=== PATIENT | male | born 1940 | race Caucasian/White ===

== ENCOUNTER 2017-04-15 11:54 | Inpatient (IN) | payer MEDICARE ==
[~2017-04-15] VITALS: Ht 170.2 cm; Wt 91.0 kg
[2017-04-15 12:42] LABS: HEMOGLOBIN 13.7 g/dL (13.7-18.0); WHITE BLOOD COUNT 12.7 x10^3/uL (3.4-10)
[2017-04-15 12:56] LABS: BLOOD UREA NITROGEN 34 mg/dL (7-18)
[2017-04-15 13:01] LABS: ASPARTATE AMINO TRANSFERASE 51 U/L (15-37)
[2017-04-15 13:03] LABS: IS PT STATUS REG ER OR PRE ER? YES
[2017-04-15] MEDS ORDERED: SODIUM CHLORIDE 0.9% 1,000ML IVBOLUS ONE (13:30)
[2017-04-15] MEDS ORDERED: SODIUM CHLORIDE FLUSH 10ML SYR IVF ONE (13:30)
[2017-04-15] MEDS ORDERED: CEFTRIAXONE PMX 1GM/50ML 50 ML IV ONE (14:30)
[2017-04-15] MEDS ORDERED: RASA1TAB2 PO (14:58)
[2017-04-15] MEDS ORDERED: CARB1TAB25 PO (14:58)
[2017-04-15] MEDS ORDERED: CEFTRIAXONE PMX 1GM/50ML 50 ML ONE (15:30)
[2017-04-15] MEDS ORDERED: ENALAPRILAT 1.25 MG/ML, 2ML IVPush PRN (15:30)
[2017-04-15] MEDS ORDERED: ACETAMINOPHEN 325 MG TABLET PO PRN (15:30)
[2017-04-15] MEDS ORDERED: LABETALOL 5MG/ML, 20ML IVPush PRN (15:30)
[2017-04-15] MEDS ORDERED: DOCUSATE 100 MG CAPSULE PO PRN (15:30)
[2017-04-15] MEDS ORDERED: ONDANSETRON 2MG/ML, 2ML IVPush PRN (15:30)
[2017-04-15] MEDS ORDERED: ONDANSETRON ODT 4 MG PO PRN (15:30)
[2017-04-15] MEDS: SODIUM CHLORIDE 0.9% 1,000 ML IV SCH (17:17)
[2017-04-15] MEDS: CARBIDOPA/LEVODOPA 25 MG/250 MG TABLET PO SCH ×3 (18:32→22:12)
[2017-04-15 19:11] VITALS: BP 105/63
[2017-04-16 00:22] VITALS: BP 96/60
[2017-04-16] MEDS: CARBIDOPA/LEVODOPA 25 MG/250 MG TABLET PO SCH ×12 (00:24→22:13)
[2017-04-16] MEDS: SODIUM CHLORIDE 0.9% 1,000 ML IV SCH ×3 (03:07→22:13)
[2017-04-16 07:44] VITALS: BP 117/78
[2017-04-16] MEDS: SENNA/DOCUSATE TABLET PO SCH (09:00)
[2017-04-16] MEDS: RASAGILINE MESYLATE PO SCH (09:15)
[2017-04-16 09:29] LABS: HEMATOCRIT 39.3 % (39.2-51.8); HEMOGLOBIN 13.1 g/dL (13.7-18.0); WHITE BLOOD COUNT 9.2 x10^3/uL (3.4-10)
[2017-04-16 09:41] LABS: ASPARTATE AMINO TRANSFERASE 46 U/L (15-37); BLOOD UREA NITROGEN 22 mg/dL (7-18)
[2017-04-16] MEDS: CEFTRIAXONE PMX 2GM/50ML 50 ML IV SCH (11:56)
[2017-04-16] MEDS: HEPARIN 5,000 UNITS/ML, 1ML SQ SCH ×2 (12:00→20:00)
[2017-04-16 13:55] VITALS: BP 90/58
[2017-04-16 18:54] VITALS: BP 92/61
[2017-04-17] MEDS: CARBIDOPA/LEVODOPA 25 MG/250 MG TABLET PO SCH ×12 (00:15→22:17)
[2017-04-17 00:29] VITALS: BP 103/64
[2017-04-17] MEDS: HEPARIN 5,000 UNITS/ML, 1ML SQ SCH ×3 (03:41→20:00)
[2017-04-17 05:16] LABS: BLOOD UREA NITROGEN 19 mg/dL (7-18)
[2017-04-17 05:17] LABS: HEMATOCRIT 34.5 % (39.2-51.8); HEMOGLOBIN 11.6 g/dL (13.7-18.0); WHITE BLOOD COUNT 8.3 x10^3/uL (3.4-10)
[2017-04-17 05:19] LABS: ASPARTATE AMINO TRANSFERASE 32 U/L (15-37)
[2017-04-17 08:30] VITALS: BP 121/74
[2017-04-17] MEDS: SENNA/DOCUSATE TABLET PO SCH (09:00)
[2017-04-17] MEDS: RASAGILINE MESYLATE PO SCH (09:00)
[2017-04-17] MEDS: SODIUM CHLORIDE 0.9% 1,000 ML IV SCH (10:49)
[2017-04-17] MEDS: CEFTRIAXONE PMX 2GM/50ML 50 ML IV SCH (12:00)
[2017-04-17] MEDS: CEPHALEXIN 500 MG CAPSULE PO SCH ×3 (12:38→20:22)
[2017-04-17 15:38] VITALS: BP 134/75
[2017-04-17 18:52] VITALS: BP 126/68
[2017-04-17] MEDS ORDERED: ERGOCALCIFEROL 50,000 UNIT CAPSULE PO SCH (20:00)
[2017-04-17] MEDS: ERGOCALCIFEROL 50,000 UNIT CAPSULE PO SCH (22:17)
[2017-04-18] MEDS: CARBIDOPA/LEVODOPA 25 MG/250 MG TABLET PO SCH ×12 (00:16→22:57)
[2017-04-18] MEDS: HEPARIN 5,000 UNITS/ML, 1ML SQ SCH ×3 (04:00→20:00)
[2017-04-18 04:05] VITALS: BP 149/83
[2017-04-18] MEDS: CEPHALEXIN 500 MG CAPSULE PO SCH ×4 (06:28→20:55)
[2017-04-18 06:47] VITALS: BP 119/75
[2017-04-18] MEDS: SENNA/DOCUSATE TABLET PO SCH (08:24)
[2017-04-18] MEDS: RASAGILINE MESYLATE PO SCH (08:24)
[2017-04-18 13:10] VITALS: BP 162/93
[2017-04-18 19:46] VITALS: BP 108/69
[2017-04-18] MEDS ORDERED: LABETALOL 5MG/ML, 20ML IVPush PRN (20:30)
[2017-04-18] MEDS ORDERED: ONDANSETRON ODT 4 MG PO PRN (20:30)
[2017-04-18] MEDS ORDERED: ENALAPRILAT 1.25 MG/ML, 2ML IVPush PRN (20:30)
[2017-04-18] MEDS ORDERED: ACETAMINOPHEN 325 MG TABLET PO PRN (20:30)
[2017-04-18] MEDS ORDERED: DOCUSATE 100 MG CAPSULE PO PRN (20:30)
[2017-04-18] MEDS ORDERED: ONDANSETRON 2MG/ML, 2ML IVPush PRN (20:30)
[2017-04-19] MEDS: CARBIDOPA/LEVODOPA 25 MG/250 MG TABLET PO SCH ×12 (00:48→22:55)
[2017-04-19] MEDS: HEPARIN 5,000 UNITS/ML, 1ML SQ SCH ×3 (04:00→20:00)
[2017-04-19] MEDS: CEPHALEXIN 500 MG CAPSULE PO SCH ×4 (06:17→21:11)
[2017-04-19 07:05] VITALS: BP 169/71
[2017-04-19] MEDS: RASAGILINE MESYLATE PO SCH (09:31)
[2017-04-19] MEDS: SENNA/DOCUSATE TABLET PO SCH (09:31)
[2017-04-19 12:43] VITALS: BP 128/84
[2017-04-19 20:06] VITALS: BP 114/71
[2017-04-20] MEDS: CARBIDOPA/LEVODOPA 25 MG/250 MG TABLET PO SCH ×12 (01:20→21:56)
[2017-04-20 01:34] VITALS: BP 107/70
[2017-04-20] MEDS: HEPARIN 5,000 UNITS/ML, 1ML SQ SCH ×3 (03:55→20:00)
[2017-04-20] MEDS: CEPHALEXIN 500 MG CAPSULE PO SCH ×4 (05:24→21:56)
[2017-04-20] MEDS: RASAGILINE MESYLATE PO SCH (07:25)
[2017-04-20] MEDS: SENNA/DOCUSATE TABLET PO SCH (07:25)
[2017-04-20 08:11] VITALS: BP 120/69
[2017-04-20 19:29] VITALS: BP 99/62
[2017-04-21] MEDS: CARBIDOPA/LEVODOPA 25 MG/250 MG TABLET PO SCH ×12 (02:07→21:55)
[2017-04-21 02:39] VITALS: BP 121/67
[2017-04-21] MEDS: HEPARIN 5,000 UNITS/ML, 1ML SQ SCH ×3 (04:00→20:00)
[2017-04-21] MEDS: CEPHALEXIN 500 MG CAPSULE PO SCH ×4 (05:44→20:03)
[2017-04-21] MEDS: SENNA/DOCUSATE TABLET PO SCH (08:04)
[2017-04-21] MEDS: RASAGILINE MESYLATE PO SCH (08:04)
[2017-04-21 13:29] VITALS: BP 132/80
[2017-04-21 16:15] LABS: PATH.CAST-FLAG NOT PRESENT; SPERM-FLAG NOT PRESENT; SRC-FLAG NOT PRESENT; XTAL-FLAG NOT PRESENT; YLC-FLAG NOT PRESENT
[2017-04-22] MEDS: CARBIDOPA/LEVODOPA 25 MG/250 MG TABLET PO SCH ×12 (00:19→22:35)
[2017-04-22] MEDS: HEPARIN 5,000 UNITS/ML, 1ML SQ SCH ×3 (04:00→20:00)
[2017-04-22] MEDS: CEPHALEXIN 500 MG CAPSULE PO SCH ×2 (05:55→11:00)
[2017-04-22 08:00] VITALS: BP 130/80
[2017-04-22] MEDS: RASAGILINE MESYLATE PO SCH (08:45)
[2017-04-22] MEDS: SENNA/DOCUSATE TABLET PO SCH (08:46)
[2017-04-22 14:13] VITALS: BP 110/65
[2017-04-22 19:05] VITALS: BP 113/64
[2017-04-23] MEDS: CARBIDOPA/LEVODOPA 25 MG/250 MG TABLET PO SCH ×11 (00:40→22:14)
[2017-04-23 02:51] VITALS: BP 110/62
[2017-04-23] MEDS: HEPARIN 5,000 UNITS/ML, 1ML SQ SCH ×3 (04:00→20:37)
[2017-04-23 05:35] LABS: HEMATOCRIT 38.2 % (39.2-51.8); HEMOGLOBIN 12.9 g/dL (13.7-18.0); WHITE BLOOD COUNT 8.7 x10^3/uL (3.4-10)
[2017-04-23 05:47] LABS: BLOOD UREA NITROGEN 23 mg/dL (7-18)
[2017-04-23 05:51] LABS: ASPARTATE AMINO TRANSFERASE 18 U/L (15-37)
[2017-04-23] MEDS: RASAGILINE MESYLATE PO SCH (08:39)
[2017-04-23] MEDS: SENNA/DOCUSATE TABLET PO SCH (08:39)
[2017-04-23 13:45] VITALS: BP 109/59
[2017-04-23 19:39] VITALS: BP 133/79
[2017-04-24] MEDS: CARBIDOPA/LEVODOPA 25 MG/250 MG TABLET PO SCH ×11 (00:22→23:08)
[2017-04-24] MEDS: HEPARIN 5,000 UNITS/ML, 1ML SQ SCH ×3 (03:53→21:19)
[2017-04-24] MEDS: RASAGILINE MESYLATE PO SCH (08:33)
[2017-04-24] MEDS: SENNA/DOCUSATE TABLET PO SCH (08:33)
[2017-04-24 14:00] VITALS: BP 125/85
[2017-04-24 17:03] VITALS: BP 122/74
[2017-04-24 18:45] VITALS: BP 102/64
[2017-04-24] MEDS: ERGOCALCIFEROL 50,000 UNIT CAPSULE PO SCH (21:17)
[2017-04-25] MEDS: CARBIDOPA/LEVODOPA 25 MG/250 MG TABLET PO SCH ×13 (00:56→23:38)
[2017-04-25] MEDS: HEPARIN 5,000 UNITS/ML, 1ML SQ SCH ×3 (03:47→20:00)
[2017-04-25 07:06] VITALS: BP 114/72
[2017-04-25] MEDS: SENNA/DOCUSATE TABLET PO SCH (09:00)
[2017-04-25] MEDS: RASAGILINE MESYLATE PO SCH (09:00)
[2017-04-25 13:53] VITALS: BP 99/62
[2017-04-25 18:53] VITALS: BP 119/65
[2017-04-25] MEDS ORDERED: ACETAMINOPHEN 325 MG TABLET PO PRN (20:30)
[2017-04-25] MEDS ORDERED: LABETALOL 5MG/ML, 20ML IVPush PRN (20:30)
[2017-04-25] MEDS ORDERED: DOCUSATE 100 MG CAPSULE PO PRN (20:30)
[2017-04-25] MEDS ORDERED: ONDANSETRON 2MG/ML, 2ML IVPush PRN (20:30)
[2017-04-25] MEDS ORDERED: ENALAPRILAT 1.25 MG/ML, 2ML IVPush PRN (20:30)
[2017-04-26] MEDS: CARBIDOPA/LEVODOPA 25 MG/250 MG TABLET PO SCH ×11 (01:33→22:06)
[2017-04-26] MEDS: HEPARIN 5,000 UNITS/ML, 1ML SQ SCH ×3 (03:44→20:00)
[2017-04-26 08:00] VITALS: BP 137/67
[2017-04-26] MEDS: RASAGILINE MESYLATE PO SCH (09:00)
[2017-04-26] MEDS: SENNA/DOCUSATE TABLET PO SCH (09:00)
[2017-04-26 13:00] VITALS: BP 118/69
[2017-04-26 20:10] VITALS: BP 115/67
[2017-04-27] MEDS: CARBIDOPA/LEVODOPA 25 MG/250 MG TABLET PO SCH ×12 (00:06→23:36)
[2017-04-27 01:10] VITALS: BP 104/62
[2017-04-27] MEDS: HEPARIN 5,000 UNITS/ML, 1ML SQ SCH ×3 (04:00→20:00)
[2017-04-27 07:06] VITALS: BP 96/55
[2017-04-27] MEDS: RASAGILINE MESYLATE PO SCH (09:00)
[2017-04-27] MEDS: SENNA/DOCUSATE TABLET PO SCH (09:00)
[2017-04-27 14:46] VITALS: BP 118/79
[2017-04-28] MEDS: CARBIDOPA/LEVODOPA 25 MG/250 MG TABLET PO SCH ×12 (01:37→23:26)
[2017-04-28 02:17] VITALS: BP 97/45
[2017-04-28] MEDS: HEPARIN 5,000 UNITS/ML, 1ML SQ SCH ×3 (04:00→19:42)
[2017-04-28 05:27] LABS: HEMATOCRIT 37.2 % (39.2-51.8); HEMOGLOBIN 12.2 g/dL (13.7-18.0)
[2017-04-28 05:46] LABS: ASPARTATE AMINO TRANSFERASE 15 U/L (15-37); BLOOD UREA NITROGEN 19 mg/dL (7-18)
[2017-04-28] MEDS: RASAGILINE MESYLATE PO SCH (07:36)
[2017-04-28] MEDS: SENNA/DOCUSATE TABLET PO SCH (07:36)
[2017-04-28 08:01] VITALS: BP 125/63
[2017-04-28 13:40] VITALS: BP 105/62
[2017-04-28] MEDS ORDERED: CALCIUM CARBONATE 500 MG TAB.CHEW PO PRN (16:30)
[2017-04-28 19:14] VITALS: BP 106/62
[2017-04-29] MEDS: CARBIDOPA/LEVODOPA 25 MG/250 MG TABLET PO SCH ×12 (01:42→23:01)
[2017-04-29 02:45] VITALS: BP 103/62
[2017-04-29] MEDS: HEPARIN 5,000 UNITS/ML, 1ML SQ SCH ×3 (03:22→19:44)
[2017-04-29 04:43] LABS: HEMATOCRIT 36.9 % (39.2-51.8); HEMOGLOBIN 12.3 g/dL (13.7-18.0)
[2017-04-29 04:52] LABS: BLOOD UREA NITROGEN 18 mg/dL (7-18)
[2017-04-29] MEDS: SENNA/DOCUSATE TABLET PO SCH (07:28)
[2017-04-29] MEDS: RASAGILINE MESYLATE PO SCH (07:29)
[2017-04-29 08:35] VITALS: BP 119/74
[2017-04-29 13:03] VITALS: BP 123/78
[2017-04-29 18:27] VITALS: BP 113/69
[2017-04-30] MEDS: CARBIDOPA/LEVODOPA 25 MG/250 MG TABLET PO SCH ×12 (01:07→23:30)
[2017-04-30 03:35] VITALS: BP 136/80
[2017-04-30] MEDS: HEPARIN 5,000 UNITS/ML, 1ML SQ SCH ×3 (04:00→19:36)
[2017-04-30 06:44] VITALS: BP 104/66
[2017-04-30] MEDS: RASAGILINE MESYLATE PO SCH (07:45)
[2017-04-30] MEDS: SENNA/DOCUSATE TABLET PO SCH (07:45)
[2017-04-30 13:30] VITALS: BP 106/68
[2017-04-30 19:44] VITALS: BP 108/63
[2017-05-01] MEDS: CARBIDOPA/LEVODOPA 25 MG/250 MG TABLET PO SCH ×11 (01:30→22:46)
[2017-05-01 01:37] VITALS: BP 99/58
[2017-05-01] MEDS: HEPARIN 5,000 UNITS/ML, 1ML SQ SCH ×3 (04:00→20:00)
[2017-05-01 06:39] VITALS: BP 104/63
[2017-05-01] MEDS: RASAGILINE MESYLATE PO SCH (08:27)
[2017-05-01] MEDS: SENNA/DOCUSATE TABLET PO SCH (08:27)
[2017-05-01 12:56] VITALS: BP 103/66
[2017-05-01 19:34] VITALS: BP 97/68
[2017-05-01] MEDS: ERGOCALCIFEROL 50,000 UNIT CAPSULE PO SCH (20:54)
[2017-05-02] MEDS: CARBIDOPA/LEVODOPA 25 MG/250 MG TABLET PO SCH ×12 (00:50→22:45)
[2017-05-02 02:01] VITALS: BP 116/72
[2017-05-02] MEDS: HEPARIN 5,000 UNITS/ML, 1ML SQ SCH ×3 (04:00→20:00)
[2017-05-02 06:55] VITALS: BP 97/62
[2017-05-02] MEDS: RASAGILINE MESYLATE PO SCH (08:48)
[2017-05-02] MEDS: SENNA/DOCUSATE TABLET PO SCH (08:56)
[2017-05-02 13:23] VITALS: BP 112/67
[2017-05-02 19:56] VITALS: BP 113/68
[2017-05-03] MEDS: CARBIDOPA/LEVODOPA 25 MG/250 MG TABLET PO SCH ×6 (00:27→10:30)
[2017-05-03 01:39] VITALS: BP 95/58
[2017-05-03] MEDS: HEPARIN 5,000 UNITS/ML, 1ML SQ SCH ×3 (04:00→19:56)
[2017-05-03 06:41] VITALS: BP 105/62
[2017-05-03] MEDS: SENNA/DOCUSATE TABLET PO SCH (08:51)
[2017-05-03] MEDS: RASAGILINE MESYLATE PO SCH (08:51)
[2017-05-03] MEDS: CARBIDOPA/LEVODOPA 25 MG/100 MG TABLET PO SCH ×14 (11:02→23:33)
[2017-05-03 12:21] VITALS: BP 122/82
[2017-05-03 18:52] VITALS: BP 115/77
[2017-05-04 01:17] VITALS: BP 133/85
[2017-05-04] MEDS: CARBIDOPA/LEVODOPA 25 MG/100 MG TABLET PO SCH ×10 (01:26→09:43)
[2017-05-04] MEDS: HEPARIN 5,000 UNITS/ML, 1ML SQ SCH ×3 (04:00→20:00)
[2017-05-04 05:08] LABS: HEMATOCRIT 36.5 % (39.2-51.8); HEMOGLOBIN 12.3 g/dL (13.7-18.0); WHITE BLOOD COUNT 6.2 x10^3/uL (3.4-10)
[2017-05-04 05:19] LABS: BLOOD UREA NITROGEN 30 mg/dL (7-18)
[2017-05-04 07:54] VITALS: BP 123/80
[2017-05-04] MEDS: RASAGILINE MESYLATE PO SCH (09:00)
[2017-05-04] MEDS: SENNA/DOCUSATE TABLET PO SCH (09:00)
[2017-05-04] MEDS: CARBIDOPA/LEVODOPA 25 MG/250 MG TABLET PO SCH ×6 (12:03→22:47)
[2017-05-04 13:12] VITALS: BP 114/72
[2017-05-04 19:31] VITALS: BP 98/65
[2017-05-05] MEDS: CARBIDOPA/LEVODOPA 25 MG/250 MG TABLET PO SCH ×11 (00:38→23:36)
[2017-05-05 00:45] VITALS: BP 90/59
[2017-05-05] MEDS: HEPARIN 5,000 UNITS/ML, 1ML SQ SCH ×3 (03:53→19:38)
[2017-05-05] MEDS: RASAGILINE MESYLATE PO SCH (07:51)
[2017-05-05] MEDS: SENNA/DOCUSATE TABLET PO SCH (08:03)
[2017-05-05 13:21] VITALS: BP 110/64
[2017-05-05 18:55] VITALS: BP 125/82
[2017-05-06 01:06] VITALS: BP 131/88
[2017-05-06] MEDS: CARBIDOPA/LEVODOPA 25 MG/250 MG TABLET PO SCH ×11 (01:14→23:00)
[2017-05-06] MEDS: HEPARIN 5,000 UNITS/ML, 1ML SQ SCH ×3 (04:00→20:00)
[2017-05-06 07:17] VITALS: BP 111/72
[2017-05-06] MEDS: RASAGILINE MESYLATE PO SCH (07:25)
[2017-05-06] MEDS: SENNA/DOCUSATE TABLET PO SCH (07:28)
[2017-05-06 13:59] VITALS: BP 125/82
[2017-05-06] MEDS: ROPINIROLE 0.25MG TABLET PO SCH ×2 (16:37→20:53)
[2017-05-06 19:40] VITALS: BP 109/65
[2017-05-07 00:04] VITALS: BP 130/83
[2017-05-07] MEDS: CARBIDOPA/LEVODOPA 25 MG/250 MG TABLET PO SCH ×5 (00:17→07:54)
[2017-05-07] MEDS: HEPARIN 5,000 UNITS/ML, 1ML SQ SCH ×3 (04:00→19:56)
[2017-05-07 06:45] VITALS: BP 134/80
[2017-05-07] MEDS: RASAGILINE MESYLATE PO SCH (06:59)
[2017-05-07] MEDS: SENNA/DOCUSATE TABLET PO SCH (07:54)
[2017-05-07] MEDS: ROPINIROLE 0.25MG TABLET PO SCH ×3 (07:54→21:15)
[2017-05-07] MEDS: CARBIDOPA/LEVODOPA 25 MG/250 MG TABLET PO PRN ×3 (11:32→21:15)
[2017-05-07 14:14] VITALS: BP 112/73
[2017-05-07] MEDS ORDERED: ALBUTEROL SULFATE 2.5 MG/3 ML ONE (15:06)
[2017-05-07] MEDS ORDERED: ALBUTEROL SULFATE 2.5 MG/3 ML NPPB ONE (15:25)
[2017-05-07 21:09] VITALS: BP 121/71
[2017-05-08] MEDS: HEPARIN 5,000 UNITS/ML, 1ML SQ SCH ×3 (01:23→20:00)
[2017-05-08 01:37] VITALS: BP 129/71
[2017-05-08] MEDS: CARBIDOPA/LEVODOPA 25 MG/250 MG TABLET PO PRN ×7 (05:06→21:34)
[2017-05-08 07:33] VITALS: BP 103/68
[2017-05-08] MEDS: RASAGILINE MESYLATE PO SCH (08:56)
[2017-05-08] MEDS: SENNA/DOCUSATE TABLET PO SCH (09:00)
[2017-05-08] MEDS: ROPINIROLE 0.25MG TABLET PO SCH ×3 (09:25→21:03)
[2017-05-08 13:13] LABS: PPD INJECT PLACED
[2017-05-08 14:21] VITALS: BP 111/74
[2017-05-08 19:19] VITALS: BP 121/78
[2017-05-08] MEDS: ERGOCALCIFEROL 50,000 UNIT CAPSULE PO SCH (20:09)
[2017-05-09 02:01] VITALS: BP 111/72
[2017-05-09] MEDS: CARBIDOPA/LEVODOPA 25 MG/250 MG TABLET PO PRN ×8 (02:38→22:58)
[2017-05-09] MEDS: HEPARIN 5,000 UNITS/ML, 1ML SQ SCH ×3 (04:00→20:00)
[2017-05-09 08:10] VITALS: BP 136/74
[2017-05-09] MEDS: RASAGILINE MESYLATE PO SCH (08:38)
[2017-05-09] MEDS: ROPINIROLE 0.25MG TABLET PO SCH ×3 (08:42→22:58)
[2017-05-09] MEDS: SENNA/DOCUSATE TABLET PO SCH (08:48)
[2017-05-09 13:36] VITALS: BP 108/60
[2017-05-09 19:06] VITALS: BP 131/86
[2017-05-10] MEDS: CARBIDOPA/LEVODOPA 25 MG/250 MG TABLET PO PRN ×9 (02:34→23:24)
[2017-05-10 03:17] VITALS: BP 115/66
[2017-05-10] MEDS: HEPARIN 5,000 UNITS/ML, 1ML SQ SCH ×3 (03:48→20:00)
[2017-05-10 06:09] LABS: HEMATOCRIT 36.9 % (39.2-51.8); HEMOGLOBIN 12.6 g/dL (13.7-18.0); WHITE BLOOD COUNT 6.5 x10^3/uL (3.4-10)
[2017-05-10 06:15] LABS: BLOOD UREA NITROGEN 26 mg/dL (7-18)
[2017-05-10 07:24] VITALS: BP 98/62
[2017-05-10] MEDS: RASAGILINE MESYLATE PO SCH (08:34)
[2017-05-10] MEDS: SENNA/DOCUSATE TABLET PO SCH (09:00)
[2017-05-10] MEDS: ROPINIROLE 0.25MG TABLET PO SCH ×3 (09:21→20:49)
[2017-05-10 15:45] VITALS: BP 102/67
[2017-05-10 17:37] LABS: TUBERCULIN 48 HOUR READ 0 mm (< 5)
[2017-05-10 18:37] VITALS: BP 99/62
[2017-05-10] MEDS ORDERED: TEMAZEPAM 15 MG CAPSULE PO PRN (23:00)
[2017-05-11] MEDS: CARBIDOPA/LEVODOPA 25 MG/250 MG TABLET PO PRN ×9 (01:28→22:51)
[2017-05-11 01:34] VITALS: BP 120/67
[2017-05-11] MEDS: HEPARIN 5,000 UNITS/ML, 1ML SQ SCH ×3 (03:52→19:40)
[2017-05-11 07:00] VITALS: BP 121/72
[2017-05-11] MEDS: SENNA/DOCUSATE TABLET PO SCH (07:29)
[2017-05-11] MEDS: RASAGILINE MESYLATE PO SCH (07:29)
[2017-05-11] MEDS: ROPINIROLE 0.25MG TABLET PO SCH ×3 (07:59→20:57)
[2017-05-11 12:26] VITALS: BP 133/87
[2017-05-11 18:38] VITALS: BP 131/84
[2017-05-11 20:57] LABS: TUBERCULIN 72 HOUR READ 0 mm (< 5)
[2017-05-12] MEDS: CARBIDOPA/LEVODOPA 25 MG/250 MG TABLET PO PRN ×9 (01:17→23:33)
[2017-05-12 02:02] VITALS: BP 91/47
[2017-05-12] MEDS: HEPARIN 5,000 UNITS/ML, 1ML SQ SCH ×3 (03:31→19:59)
[2017-05-12 07:18] VITALS: BP 123/77
[2017-05-12] MEDS: ROPINIROLE 0.25MG TABLET PO SCH ×3 (08:08→20:41)
[2017-05-12] MEDS: SENNA/DOCUSATE TABLET PO SCH ×2 (08:08→16:24)
[2017-05-12] MEDS: RASAGILINE MESYLATE PO SCH (08:08)
[2017-05-12 09:43] VITALS: BP 102/68
[2017-05-12 14:31] VITALS: BP 101/59
[2017-05-12 18:53] VITALS: BP 100/63
[2017-05-13] MEDS: CARBIDOPA/LEVODOPA 25 MG/250 MG TABLET PO PRN ×8 (01:32→20:56)
[2017-05-13 02:32] VITALS: BP 122/66
[2017-05-13] MEDS: HEPARIN 5,000 UNITS/ML, 1ML SQ SCH ×3 (03:43→20:57)
[2017-05-13 07:07] VITALS: BP 99/64
[2017-05-13] MEDS: SENNA/DOCUSATE TABLET PO SCH (09:00)
[2017-05-13] MEDS: RASAGILINE MESYLATE PO SCH (09:00)
[2017-05-13] MEDS: ROPINIROLE 0.25MG TABLET PO SCH ×3 (09:14→20:56)
[2017-05-13 14:00] VITALS: BP 108/76
[2017-05-13 18:38] VITALS: BP 109/71
[2017-05-14 03:39] VITALS: BP 136/87
[2017-05-14] MEDS: CARBIDOPA/LEVODOPA 25 MG/250 MG TABLET PO PRN ×7 (03:53→21:23)
[2017-05-14] MEDS: HEPARIN 5,000 UNITS/ML, 1ML SQ SCH ×3 (04:00→19:32)
[2017-05-14 07:14] VITALS: BP 95/58
[2017-05-14] MEDS: ROPINIROLE 0.25MG TABLET PO SCH ×3 (08:25→20:03)
[2017-05-14] MEDS: SENNA/DOCUSATE TABLET PO SCH (08:26)
[2017-05-14] MEDS: RASAGILINE MESYLATE PO SCH (08:26)
[2017-05-14 13:41] VITALS: BP 91/54
[2017-05-14 18:31] VITALS: BP 127/80
[2017-05-15] MEDS: HEPARIN 5,000 UNITS/ML, 1ML SQ SCH ×3 (00:53→20:00)
[2017-05-15] MEDS: CARBIDOPA/LEVODOPA 25 MG/250 MG TABLET PO PRN ×8 (01:42→22:51)
[2017-05-15 01:46] VITALS: BP 128/82
[2017-05-15 08:17] VITALS: BP 120/78
[2017-05-15] MEDS: ROPINIROLE 0.25MG TABLET PO SCH ×3 (08:29→19:46)
[2017-05-15] MEDS: RASAGILINE MESYLATE PO SCH (09:00)
[2017-05-15] MEDS: SENNA/DOCUSATE TABLET PO SCH (09:00)
[2017-05-15 12:55] VITALS: BP 107/71
[2017-05-15 18:53] LABS: IS PT STATUS REG ER OR PRE ER? NO
[2017-05-15 19:06] VITALS: BP 107/68
[2017-05-15] MEDS: ERGOCALCIFEROL 50,000 UNIT CAPSULE PO SCH (19:46)
[2017-05-16 01:09] VITALS: BP 99/64
[2017-05-16] MEDS: CARBIDOPA/LEVODOPA 25 MG/250 MG TABLET PO PRN ×7 (02:12→21:59)
[2017-05-16] MEDS: HEPARIN 5,000 UNITS/ML, 1ML SQ SCH ×3 (04:00→19:25)
[2017-05-16 04:18] LABS: IS PT STATUS REG ER OR PRE ER? NO
[2017-05-16 07:17] VITALS: BP 123/74
[2017-05-16] MEDS: ROPINIROLE 0.25MG TABLET PO SCH ×3 (08:28→21:59)
[2017-05-16] MEDS: SENNA/DOCUSATE TABLET PO SCH (08:28)
[2017-05-16] MEDS: RASAGILINE MESYLATE PO SCH (08:28)
[2017-05-16 14:00] VITALS: BP 121/72
[2017-05-16 19:05] VITALS: BP 114/69
[2017-05-17] MEDS: CARBIDOPA/LEVODOPA 25 MG/250 MG TABLET PO PRN ×9 (01:28→23:05)
[2017-05-17 08:00] VITALS: BP 110/65
[2017-05-17] MEDS: RASAGILINE MESYLATE PO SCH (08:28)
[2017-05-17] MEDS: ROPINIROLE 0.25MG TABLET PO SCH ×3 (08:33→20:11)
[2017-05-17] MEDS: SENNA/DOCUSATE TABLET PO SCH (08:34)
[2017-05-17] MEDS: HEPARIN 5,000 UNITS/ML, 1ML SQ SCH ×3 (11:42→20:00)
[2017-05-17 14:00] VITALS: BP 117/72
[2017-05-17 21:16] VITALS: BP 125/72
[2017-05-18] MEDS: CARBIDOPA/LEVODOPA 25 MG/250 MG TABLET PO PRN ×9 (01:29→22:47)
[2017-05-18] MEDS: HEPARIN 5,000 UNITS/ML, 1ML SQ SCH ×3 (03:30→19:27)
[2017-05-18 06:55] VITALS: BP 122/76
[2017-05-18] MEDS: SENNA/DOCUSATE TABLET PO SCH (08:06)
[2017-05-18] MEDS: RASAGILINE MESYLATE PO SCH (08:06)
[2017-05-18] MEDS: ROPINIROLE 0.25MG TABLET PO SCH ×3 (08:06→19:27)
[2017-05-18 14:07] VITALS: BP 125/70
[2017-05-19] MEDS: HEPARIN 5,000 UNITS/ML, 1ML SQ SCH ×3 (00:28→20:00)
[2017-05-19] MEDS: CARBIDOPA/LEVODOPA 25 MG/250 MG TABLET PO PRN ×6 (02:27→20:34)
[2017-05-19 04:58] LABS: HEMATOCRIT 36.1 % (39.2-51.8); HEMOGLOBIN 12.1 g/dL (13.7-18.0); WHITE BLOOD COUNT 6.6 x10^3/uL (3.4-10)
[2017-05-19 05:18] VITALS: BP 115/70
[2017-05-19 05:21] LABS: ASPARTATE AMINO TRANSFERASE 13 U/L (15-37); BLOOD UREA NITROGEN 22 mg/dL (7-18)
[2017-05-19 08:09] VITALS: BP 118/78
[2017-05-19] MEDS: ROPINIROLE 0.25MG TABLET PO SCH ×3 (12:03→20:34)
[2017-05-19] MEDS: SENNA/DOCUSATE TABLET PO SCH (12:03)
[2017-05-19] MEDS: RASAGILINE MESYLATE PO SCH (12:03)
[2017-05-19 14:06] VITALS: BP 123/81
[2017-05-19 18:30] VITALS: BP 94/61
[2017-05-20] MEDS: CARBIDOPA/LEVODOPA 25 MG/250 MG TABLET PO PRN ×7 (01:19→23:42)
[2017-05-20 01:35] VITALS: BP 105/69
[2017-05-20] MEDS: HEPARIN 5,000 UNITS/ML, 1ML SQ SCH ×3 (04:00→20:00)
[2017-05-20 07:08] VITALS: BP 119/76
[2017-05-20] MEDS: ROPINIROLE 0.25MG TABLET PO SCH ×3 (07:50→20:28)
[2017-05-20] MEDS: RASAGILINE MESYLATE PO SCH (08:15)
[2017-05-20] MEDS: SENNA/DOCUSATE TABLET PO SCH (08:15)
[2017-05-20 11:11] LABS: HEMATOCRIT 36.6 % (39.2-51.8); HEMOGLOBIN 12.1 g/dL (13.7-18.0); WHITE BLOOD COUNT 7.3 x10^3/uL (3.4-10)
[2017-05-20 13:40] VITALS: BP 132/84
[2017-05-20] MEDS ORDERED: MAALOX/HYOSCYAMINE/LIDOCAINE 45 ML BTL PO ONE (15:00)
[2017-05-20] MEDS ORDERED: ASPIRIN 325 MG TABLET PO SCH (15:00)
[2017-05-20] MEDS ORDERED: ASPIRIN 325 MG TABLET PO ONE (15:30)
[2017-05-20] MEDS ORDERED: morphine SULFATE 10 MG/ML, 1ML IVPush PRN (16:00)
[2017-05-20 16:32] LABS: IS PT STATUS REG ER OR PRE ER? NO
[2017-05-20] MEDS ORDERED: NITROGLYCERIN 0.4 MG BOTTLE (25 TABS) SL PRN (17:00)
[2017-05-20 17:45] LABS: HEMATOCRIT 38.9 % (39.2-51.8); WHITE BLOOD COUNT 7.5 x10^3/uL (3.4-10)
[2017-05-20 17:55] LABS: BLOOD UREA NITROGEN 28 mg/dL (7-18)
[2017-05-20 17:58] LABS: ASPARTATE AMINO TRANSFERASE 13 U/L (15-37)
[2017-05-20] MEDS ORDERED: OMNIPAQUE 350 MG/ML, 100ML BOTTLE ONE (18:36)
[2017-05-20 18:40] VITALS: BP 93/64
[2017-05-20] MEDS ORDERED: ENOXAPARIN 80 MG/0.8 ML SQ SCH (20:00)
[2017-05-20] MEDS: METOPROLOL TARTRATE 25 MG TABLET PO SCH (20:28)
[2017-05-20 22:16] LABS: IS PT STATUS REG ER OR PRE ER? NO
[2017-05-20] MEDS ORDERED: HEPARIN 5,000 UNITS/ML, 1ML IV PRN (23:00)
[2017-05-20] MEDS ORDERED: HEPARIN 25,000 UNITS/500ML PMX 500 ML IV PRN (23:00)
[2017-05-21 00:17] VITALS: BP 126/77
[2017-05-21] MEDS: CARBIDOPA/LEVODOPA 25 MG/250 MG TABLET PO PRN ×7 (03:03→21:21)
[2017-05-21 06:18] LABS: IS PT STATUS REG ER OR PRE ER? NO
[2017-05-21 06:22] LABS: BLOOD UREA NITROGEN 21 mg/dL (7-18)
[2017-05-21] MEDS: ASPIRIN 81 MG TABLET EC PO SCH (06:22)
[2017-05-21] MEDS: METOPROLOL TARTRATE 25 MG TABLET PO SCH ×2 (06:24→17:32)
[2017-05-21] MEDS ORDERED: D5%-0.45% NACL 1,000 ML IV SCH ×3 (08:00→14:00)
[2017-05-21] MEDS: ROPINIROLE 0.25MG TABLET PO SCH ×3 (08:34→21:21)
[2017-05-21] MEDS: SENNA/DOCUSATE TABLET PO SCH ×2 (08:34→09:00)
[2017-05-21 08:57] VITALS: BP 101/60
[2017-05-21] MEDS: APIXABAN 5 MG TABLET PO SCH ×2 (11:39→21:21)
[2017-05-21 12:43] VITALS: BP 136/83
[2017-05-21 20:59] VITALS: BP 110/74
[2017-05-22 01:44] VITALS: BP 114/76
[2017-05-22] MEDS: CARBIDOPA/LEVODOPA 25 MG/250 MG TABLET PO PRN ×7 (02:52→20:47)
[2017-05-22 05:30] LABS: HEMATOCRIT 35.3 % (39.2-51.8); HEMOGLOBIN 11.8 g/dL (13.7-18.0); WHITE BLOOD COUNT 6.4 x10^3/uL (3.4-10)
[2017-05-22 05:46] LABS: BLOOD UREA NITROGEN 20 mg/dL (7-18)
[2017-05-22 05:51] LABS: ASPARTATE AMINO TRANSFERASE 17 U/L (15-37)
[2017-05-22 08:07] VITALS: BP 122/79
[2017-05-22] MEDS: ASPIRIN 81 MG TABLET EC PO SCH (08:38)
[2017-05-22] MEDS: ROPINIROLE 0.25MG TABLET PO SCH ×3 (08:38→21:00)
[2017-05-22] MEDS: APIXABAN 5 MG TABLET PO SCH ×2 (08:39→21:00)
[2017-05-22] MEDS: METOPROLOL TARTRATE 25 MG TABLET PO SCH ×2 (08:39→19:03)
[2017-05-22] MEDS: SENNA/DOCUSATE TABLET PO SCH (09:00)
[2017-05-22 14:56] VITALS: BP 110/84
[2017-05-22 17:17] VITALS: BP 116/79
[2017-05-22 19:53] VITALS: BP 89/58
[2017-05-22] MEDS: ERGOCALCIFEROL 50,000 UNIT CAPSULE PO SCH (20:00)
[2017-05-23 02:41] VITALS: BP 130/91
[2017-05-23] MEDS: CARBIDOPA/LEVODOPA 25 MG/250 MG TABLET PO PRN ×7 (03:08→22:24)
[2017-05-23] MEDS: METOPROLOL TARTRATE 25 MG TABLET PO SCH ×3 (06:00→18:38)
[2017-05-23] MEDS: ASPIRIN 81 MG TABLET EC PO SCH (06:00)
[2017-05-23 07:08] VITALS: BP 88/55
[2017-05-23] MEDS: ROPINIROLE 0.25MG TABLET PO SCH ×3 (07:47→22:24)
[2017-05-23] MEDS: APIXABAN 5 MG TABLET PO SCH ×2 (07:48→22:24)
[2017-05-23] MEDS: SENNA/DOCUSATE TABLET PO SCH (07:49)
[2017-05-23 14:06] VITALS: BP 98/57
[2017-05-23 19:47] VITALS: BP 116/74
[2017-05-24] MEDS: CARBIDOPA/LEVODOPA 25 MG/250 MG TABLET PO PRN ×6 (03:39→21:00)
[2017-05-24 04:58] VITALS: BP 115/75
[2017-05-24] MEDS: ASPIRIN 81 MG TABLET EC PO SCH (05:12)
[2017-05-24] MEDS: METOPROLOL TARTRATE 25 MG TABLET PO SCH ×2 (05:12→18:00)
[2017-05-24 06:33] VITALS: BP 118/77
[2017-05-24] MEDS: SENNA/DOCUSATE TABLET PO SCH ×2 (08:34→08:35)
[2017-05-24] MEDS: APIXABAN 5 MG TABLET PO SCH ×2 (08:34→23:39)
[2017-05-24] MEDS: ROPINIROLE 0.25MG TABLET PO SCH ×3 (08:34→20:59)
[2017-05-24 13:20] VITALS: BP 111/79
[2017-05-24 20:03] VITALS: BP 119/65
[2017-05-25] MEDS: CARBIDOPA/LEVODOPA 25 MG/250 MG TABLET PO PRN ×6 (03:17→23:10)
[2017-05-25 04:04] VITALS: BP 95/55
[2017-05-25 06:29] LABS: HEMOGLOBIN 12.4 g/dL (13.7-18.0)
[2017-05-25] MEDS: METOPROLOL TARTRATE 25 MG TABLET PO SCH ×3 (06:32→18:00)
[2017-05-25] MEDS: SENNA/DOCUSATE TABLET PO SCH (09:00)
[2017-05-25] MEDS: ASPIRIN 81 MG TABLET EC PO SCH (09:49)
[2017-05-25] MEDS: APIXABAN 5 MG TABLET PO SCH ×2 (09:49→23:09)
[2017-05-25] MEDS: ROPINIROLE 0.25MG TABLET PO SCH ×3 (09:50→20:13)
[2017-05-25 09:53] VITALS: BP 120/77
[2017-05-25 13:05] VITALS: BP 106/53
[2017-05-25 20:03] VITALS: BP 117/73
[2017-05-26] MEDS: CARBIDOPA/LEVODOPA 25 MG/250 MG TABLET PO PRN ×8 (02:27→22:27)
[2017-05-26 04:05] VITALS: BP 98/52
[2017-05-26] MEDS: ASPIRIN 81 MG TABLET EC PO SCH (05:59)
[2017-05-26] MEDS: METOPROLOL TARTRATE 25 MG TABLET PO SCH ×2 (05:59→18:14)
[2017-05-26] MEDS: ROPINIROLE 0.25MG TABLET PO SCH ×3 (09:11→20:22)
[2017-05-26] MEDS: APIXABAN 5 MG TABLET PO SCH ×2 (09:12→20:22)
[2017-05-26] MEDS: SENNA/DOCUSATE TABLET PO SCH (09:19)
[2017-05-26] MEDS: CEFDINIR 300 MG CAPSULE PO SCH ×2 (14:16→20:22)
[2017-05-26 19:41] VITALS: BP 99/63
[2017-05-27] MEDS: CARBIDOPA/LEVODOPA 25 MG/250 MG TABLET PO PRN ×9 (00:28→22:15)
[2017-05-27 02:33] VITALS: BP 98/65
[2017-05-27] MEDS: METOPROLOL TARTRATE 25 MG TABLET PO SCH ×2 (06:05→18:19)
[2017-05-27] MEDS: ASPIRIN 81 MG TABLET EC PO SCH (06:06)
[2017-05-27 07:22] VITALS: BP 107/69
[2017-05-27] MEDS: ROPINIROLE 0.25MG TABLET PO SCH ×2 (08:07→16:11)
[2017-05-27] MEDS: CEFDINIR 300 MG CAPSULE PO SCH (08:07)
[2017-05-27] MEDS: SENNA/DOCUSATE TABLET PO SCH (08:08)
[2017-05-27] MEDS: APIXABAN 5 MG TABLET PO SCH (08:50)
[2017-05-27 14:29] VITALS: BP 126/86
[2017-05-27 20:00] VITALS: BP 143/85
[2017-05-28] MEDS: CEFDINIR 300 MG CAPSULE PO SCH ×3 (00:55→21:06)
[2017-05-28] MEDS: APIXABAN 5 MG TABLET PO SCH ×3 (00:55→21:06)
[2017-05-28] MEDS: ROPINIROLE 0.25MG TABLET PO SCH ×4 (00:55→21:06)
[2017-05-28] MEDS: CARBIDOPA/LEVODOPA 25 MG/250 MG TABLET PO PRN ×7 (00:56→23:25)
[2017-05-28 01:48] VITALS: BP 130/81
[2017-05-28] MEDS: METOPROLOL TARTRATE 25 MG TABLET PO SCH ×2 (06:00→16:02)
[2017-05-28] MEDS: SENNA/DOCUSATE TABLET PO SCH (09:00)
[2017-05-28 10:58] VITALS: BP 117/75
[2017-05-28] MEDS: ASPIRIN 81 MG TABLET EC PO SCH (11:46)
[2017-05-28 13:33] VITALS: BP 92/58
[2017-05-28 18:42] VITALS: BP_SYST 111; BP_SYST 82; BP_DIAS 46; BP_DIAS 63
[2017-05-29 01:24] VITALS: BP 88/58
[2017-05-29] MEDS: CARBIDOPA/LEVODOPA 25 MG/250 MG TABLET PO PRN ×9 (02:34→21:14)
[2017-05-29] MEDS: METOPROLOL TARTRATE 25 MG TABLET PO SCH ×2 (05:33→18:00)
[2017-05-29] MEDS: ASPIRIN 81 MG TABLET EC PO SCH (05:33)
[2017-05-29 06:44] VITALS: BP 107/73
[2017-05-29] MEDS: CEFDINIR 300 MG CAPSULE PO SCH ×2 (07:50→21:13)
[2017-05-29] MEDS: SENNA/DOCUSATE TABLET PO SCH (09:00)
[2017-05-29] MEDS: ROPINIROLE 0.25MG TABLET PO SCH ×3 (09:32→21:13)
[2017-05-29] MEDS: APIXABAN 5 MG TABLET PO SCH ×2 (09:32→21:13)
[2017-05-29 12:54] VITALS: BP 108/68
[2017-05-29 20:17] VITALS: BP 100/67
[2017-05-29] MEDS: ERGOCALCIFEROL 50,000 UNIT CAPSULE PO SCH (21:13)
[2017-05-30] MEDS: CARBIDOPA/LEVODOPA 25 MG/250 MG TABLET PO PRN ×10 (00:11→23:48)
[2017-05-30 02:30] VITALS: BP 164/82
[2017-05-30] MEDS: ASPIRIN 81 MG TABLET EC PO SCH (05:55)
[2017-05-30] MEDS: METOPROLOL TARTRATE 25 MG TABLET PO SCH ×2 (05:57→17:05)
[2017-05-30 06:42] VITALS: BP 126/72
[2017-05-30] MEDS: CEFDINIR 300 MG CAPSULE PO SCH ×2 (08:31→21:20)
[2017-05-30] MEDS: ROPINIROLE 0.25MG TABLET PO SCH ×3 (08:31→21:20)
[2017-05-30] MEDS: APIXABAN 5 MG TABLET PO SCH ×2 (08:31→23:51)
[2017-05-30] MEDS: SENNA/DOCUSATE TABLET PO SCH (08:34)
[2017-05-30 14:50] VITALS: BP 135/74
[2017-05-30 18:36] VITALS: BP 96/59
[2017-05-31 03:50] VITALS: BP 120/68
[2017-05-31] MEDS: CARBIDOPA/LEVODOPA 25 MG/250 MG TABLET PO PRN ×8 (04:31→22:57)
[2017-05-31] MEDS: METOPROLOL TARTRATE 25 MG TABLET PO SCH ×2 (06:23→16:38)
[2017-05-31] MEDS: ASPIRIN 81 MG TABLET EC PO SCH (06:23)
[2017-05-31] MEDS: SENNA/DOCUSATE TABLET PO SCH (07:48)
[2017-05-31] MEDS: CEFDINIR 300 MG CAPSULE PO SCH ×2 (08:15→20:50)
[2017-05-31] MEDS: ROPINIROLE 0.25MG TABLET PO SCH ×3 (08:16→20:51)
[2017-05-31 08:33] VITALS: BP 123/80
[2017-05-31] MEDS: APIXABAN 5 MG TABLET PO SCH ×2 (11:11→22:58)
[2017-05-31 13:29] VITALS: BP 94/59
[2017-05-31 19:50] VITALS: BP 104/66
[2017-06-01] MEDS: CARBIDOPA/LEVODOPA 25 MG/250 MG TABLET PO PRN ×11 (00:57→23:32)
[2017-06-01] MEDS: ASPIRIN 81 MG TABLET EC PO SCH (05:40)
[2017-06-01] MEDS: METOPROLOL TARTRATE 25 MG TABLET PO SCH ×2 (05:40→16:59)
[2017-06-01 07:00] VITALS: BP 111/62
[2017-06-01] MEDS: SENNA/DOCUSATE TABLET PO SCH (08:22)
[2017-06-01] MEDS: CEFDINIR 300 MG CAPSULE PO SCH ×2 (08:32→20:31)
[2017-06-01] MEDS: ROPINIROLE 0.25MG TABLET PO SCH ×3 (08:32→20:31)
[2017-06-01] MEDS: APIXABAN 5 MG TABLET PO SCH ×2 (10:37→21:59)
[2017-06-01 12:17] VITALS: BP 116/70
[2017-06-01 20:50] VITALS: BP 148/76
[2017-06-02] MEDS: CARBIDOPA/LEVODOPA 25 MG/250 MG TABLET PO PRN ×11 (01:33→23:07)
[2017-06-02 01:41] VITALS: BP 102/65
[2017-06-02] MEDS: METOPROLOL TARTRATE 25 MG TABLET PO SCH ×2 (05:47→18:00)
[2017-06-02] MEDS: ASPIRIN 81 MG TABLET EC PO SCH (05:50)
[2017-06-02 07:08] VITALS: BP 122/69
[2017-06-02] MEDS: CEFDINIR 300 MG CAPSULE PO SCH ×2 (08:04→20:45)
[2017-06-02] MEDS: ROPINIROLE 0.25MG TABLET PO SCH ×3 (08:04→20:45)
[2017-06-02] MEDS: SENNA/DOCUSATE TABLET PO SCH (09:00)
[2017-06-02] MEDS: APIXABAN 5 MG TABLET PO SCH ×2 (10:47→20:45)
[2017-06-02 13:05] VITALS: BP 127/72
[2017-06-02 19:45] VITALS: BP 129/78
[2017-06-03] MEDS: APIXABAN 5 MG TABLET PO SCH ×3 (01:45→21:00)
[2017-06-03] MEDS: CARBIDOPA/LEVODOPA 25 MG/250 MG TABLET PO PRN ×10 (01:46→23:34)
[2017-06-03 03:55] VITALS: BP 149/88
[2017-06-03] MEDS: ASPIRIN 81 MG TABLET EC PO SCH (05:07)
[2017-06-03] MEDS: METOPROLOL TARTRATE 25 MG TABLET PO SCH ×2 (06:00→17:50)
[2017-06-03 07:30] VITALS: BP 129/81
[2017-06-03] MEDS: CEFDINIR 300 MG CAPSULE PO SCH ×2 (08:26→19:57)
[2017-06-03] MEDS: ROPINIROLE 0.25MG TABLET PO SCH ×3 (08:26→19:57)
[2017-06-03] MEDS: SENNA/DOCUSATE TABLET PO SCH (09:00)
[2017-06-03 12:40] VITALS: BP 121/75
[2017-06-03 17:50] VITALS: BP 105/63
[2017-06-03 18:58] VITALS: BP 132/81
[2017-06-04 09:40] VITALS: BP 148/87
[2017-06-04] MEDS: CEFDINIR 300 MG CAPSULE PO SCH ×3 (09:40→22:00)
[2017-06-04] MEDS: APIXABAN 5 MG TABLET PO SCH ×3 (09:40→22:00)
[2017-06-04] MEDS: ASPIRIN 81 MG TABLET EC PO SCH ×2 (09:40→10:22)
[2017-06-04] MEDS: ROPINIROLE 0.25MG TABLET PO SCH ×4 (09:40→22:00)
[2017-06-04] MEDS: CARBIDOPA/LEVODOPA 25 MG/250 MG TABLET PO PRN ×6 (09:40→22:00)
[2017-06-04] MEDS: SENNA/DOCUSATE TABLET PO SCH (09:41)
[2017-06-04] MEDS: METOPROLOL TARTRATE 25 MG TABLET PO SCH ×3 (09:41→17:26)
[2017-06-04 13:48] VITALS: BP 81/51
[2017-06-04 17:26] VITALS: BP 93/66
[2017-06-04 18:43] VITALS: BP 100/67
[2017-06-05] MEDS: CARBIDOPA/LEVODOPA 25 MG/250 MG TABLET PO PRN ×9 (00:01→21:26)
[2017-06-05 03:57] VITALS: BP 107/67
[2017-06-05] MEDS: ASPIRIN 81 MG TABLET EC PO SCH (05:36)
[2017-06-05] MEDS: METOPROLOL TARTRATE 25 MG TABLET PO SCH ×2 (05:37→18:07)
[2017-06-05 07:17] VITALS: BP 88/58
[2017-06-05] MEDS: CEFDINIR 300 MG CAPSULE PO SCH ×2 (08:46→21:00)
[2017-06-05] MEDS: ROPINIROLE 0.25MG TABLET PO SCH ×3 (08:46→21:00)
[2017-06-05] MEDS: APIXABAN 5 MG TABLET PO SCH ×2 (08:46→21:27)
[2017-06-05] MEDS: SENNA/DOCUSATE TABLET PO SCH (09:00)
[2017-06-05 12:33] VITALS: BP 124/82
[2017-06-05 19:48] VITALS: BP 108/64
[2017-06-05] MEDS: ERGOCALCIFEROL 50,000 UNIT CAPSULE PO SCH (20:00)
[2017-06-06] MEDS: CARBIDOPA/LEVODOPA 25 MG/250 MG TABLET PO PRN ×10 (00:16→22:19)
[2017-06-06 01:01] VITALS: BP 121/78
[2017-06-06] MEDS: METOPROLOL TARTRATE 25 MG TABLET PO SCH ×2 (05:23→16:43)
[2017-06-06] MEDS: ASPIRIN 81 MG TABLET EC PO SCH (05:23)
[2017-06-06 08:04] VITALS: BP 124/72
[2017-06-06] MEDS: ROPINIROLE 0.25MG TABLET PO SCH ×3 (10:27→20:35)
[2017-06-06] MEDS: CEFDINIR 300 MG CAPSULE PO SCH ×2 (10:27→20:35)
[2017-06-06] MEDS: SENNA/DOCUSATE TABLET PO SCH (10:27)
[2017-06-06] MEDS: APIXABAN 5 MG TABLET PO SCH ×3 (10:27→21:00)
[2017-06-06 15:46] VITALS: BP 124/75
[2017-06-06 19:07] VITALS: BP 97/61
[2017-06-06 21:01] VITALS: BP_SYST 120; BP_SYST 97; BP_DIAS 61; BP_DIAS 76
[2017-06-07] MEDS: CARBIDOPA/LEVODOPA 25 MG/250 MG TABLET PO PRN ×10 (00:20→21:01)
[2017-06-07 03:03] LABS: HEMATOCRIT 36.9 % (39.2-51.8); HEMOGLOBIN 12.3 g/dL (13.7-18.0); WHITE BLOOD COUNT 5.1 x10^3/uL (3.4-10)
[2017-06-07 03:12] LABS: BLOOD UREA NITROGEN 31 mg/dL (7-18)
[2017-06-07 03:42] VITALS: BP 128/81
[2017-06-07] MEDS: ASPIRIN 81 MG TABLET EC PO SCH (06:00)
[2017-06-07] MEDS: METOPROLOL TARTRATE 25 MG TABLET PO SCH ×2 (06:00→18:00)
[2017-06-07 07:20] VITALS: BP 101/64
[2017-06-07] MEDS: ROPINIROLE 0.25MG TABLET PO SCH ×3 (08:36→21:01)
[2017-06-07] MEDS: CEFDINIR 300 MG CAPSULE PO SCH ×2 (08:36→21:01)
[2017-06-07] MEDS: SENNA/DOCUSATE TABLET PO SCH (08:36)
[2017-06-07] MEDS: APIXABAN 5 MG TABLET PO SCH (10:29)
[2017-06-07 14:00] VITALS: BP 127/69
[2017-06-07 17:02] VITALS: BP 112/70
[2017-06-07] MEDS ORDERED: CALCIUM CARBONATE 500 MG TAB.CHEW PO PRN (17:30)
[2017-06-07 19:46] VITALS: BP 98/61
[2017-06-08] MEDS: CARBIDOPA/LEVODOPA 25 MG/250 MG TABLET PO PRN ×7 (00:14→16:24)
[2017-06-08] MEDS: APIXABAN 5 MG TABLET PO SCH ×2 (00:14→08:55)
[2017-06-08 03:59] VITALS: BP 116/68
[2017-06-08] MEDS: ASPIRIN 81 MG TABLET EC PO SCH (04:11)
[2017-06-08 04:59] LABS: PATH.CAST-FLAG NOT PRESENT; SPERM-FLAG NOT PRESENT; SRC-FLAG NOT PRESENT; XTAL-FLAG NOT PRESENT; YLC-FLAG NOT PRESENT
[2017-06-08] MEDS: METOPROLOL TARTRATE 25 MG TABLET PO SCH ×2 (06:00→17:30)
[2017-06-08] MEDS: SENNA/DOCUSATE TABLET PO SCH (08:10)
[2017-06-08] MEDS: CEFDINIR 300 MG CAPSULE PO SCH (08:55)
[2017-06-08] MEDS: ROPINIROLE 0.25MG TABLET PO SCH ×2 (08:55→16:24)
[2017-06-08 08:58] VITALS: BP 145/80
[2017-06-08 11:52] VITALS: BP 135/71
[2017-06-08] MEDS ORDERED: ASPI-621 PO (16:27)
[2017-06-08] MEDS ORDERED: METO25TA35 PO (16:27)
[2017-06-08] MEDS ORDERED: APIX5TAB PO (16:27)
[2017-06-08] MEDS ORDERED: ACET325T14 PO (16:27)
[2017-06-08] MEDS ORDERED: CEFD300C37 PO (16:27)
[2017-06-08] MEDS ORDERED: CARB1TAB25 PO (16:27)
[2017-06-08] MEDS ORDERED: ROPI0.25 PO (16:27)
[2017-06-08 17:19] VITALS: BP 136/78
== END 2017-06-08 17:59 | DRG 871 ==
LOC: ED 15:25 → 3NE 15:26 → ED 15:40 → 3NE 16:02 → ED 16:02 → 5SO 05-20 17:10 → 4NOR 05-22 17:05
PROVIDERS: ADMIT Internal Medicine; ATTEND Family Medicine
DX: A41.9 Sepsis, unspecified organism (principal); E43 Unspecified severe protein-calorie malnutrition; I26.99 Other pulmonary embolism without acute cor pulmonale; G20 Parkinson's disease; M62.82 Rhabdomyolysis; D64.9 Anemia, unspecified; M41.9 Scoliosis, unspecified; N39.0 Urinary tract infection, site not specified; J98.11 Atelectasis; W06.XXXA Fall from bed, initial encounter; R62.7 Adult failure to thrive; B96.20 Unspecified Escherichia coli [E. coli] as the cause of diseases classified elsewhere; Z68.31 Body mass index [BMI] 31.0-31.9, adult; Y93.89 Activity, other specified; Y92.89 Other specified places as the place of occurrence of the external cause; Y99.8 Other external cause status; E55.9 Vitamin D deficiency, unspecified; G24.9 Dystonia, unspecified; I25.10 Atherosclerotic heart disease of native coronary artery without angina pectoris; I25.2 Old myocardial infarction; M47.9 Spondylosis, unspecified; Z79.01 Long term (current) use of anticoagulants; Z79.82 Long term (current) use of aspirin; Z79.899 Other long term (current) drug therapy; J02.9 Acute pharyngitis, unspecified
CPT/HCPCS: 36415; 70450; 71010; 71275; 72110; 80048; 80053; 80061; 80375; 81001; 82040; 82306; 82550; 82607; 83605; 83735; 84100; 84145; 84439; 84443; 84484; 85025; 85520; 86580; 87040; 87077; 87086; 87186; 93005; 93306; 94640; 96361; 96365; J0696; J1644; J1650; J7613; Q9967; G0480; J7030

== ENCOUNTER 2017-07-09 16:52 | Inpatient (IN) | payer MEDICARE ==
[~2017-07-09] VITALS: Ht 185.4 cm; Wt 88.0 kg
[~2017-07-09 16:52] MED LIST: ACET325T14 PO; APIX5TAB PO; ASPI-621 PO; CARB1TAB25 PO; CEFD300C37 PO; METO25TA35 PO; RASA1TAB2 PO; ROPI0.25 PO
[2017-07-09] MEDS ORDERED: CHOL100015 PO (17:06)
[2017-07-09] MEDS ORDERED: ACETAMINOPHEN 325 MG TABLET ONE (17:23)
[2017-07-09 17:53] LABS: BASOPHILS # (AUTO) 0.01 x10^3/uL (0-0.1); BASOPHILS % (AUTO) 0 % (0-1); EOSINOPHILS % (AUTO) 8 % (1-7); LYMPHOCYTES # (AUTO) 0.64 x10^3/uL (1-3.4); LYMPHOCYTES % (AUTO) 12 % (22-44); MD NO; MEAN CORPUSCULAR HEMOGLOBIN 30.9 pg (27.5-34.5); MEAN CORPUSCULAR VOLUME 93.4 fL (81-97); MEAN PLATELET VOLUME 7.9 fL (7.4-10.4); MONOCYTES # (AUTO) 0.75 x10^3/uL (0.2-0.8); MONOCYTES % (AUTO) 15 % (2-9); NEUTROPHILS # (AUTO) 3.39 x10^3/uL (1.8-6.8); NEUTROPHILS % (AUTO) 65 % (42-75); PLATELET COUNT 282 x10^3/uL (130-400); RED BLOOD COUNT 4.35 x10^6/uL (4.38-5.82); RED CELL DISTRIBUTION WIDTH 14.6 % (9.4-14.8)
[2017-07-09] MEDS ORDERED: ACETAMINOPHEN 325 MG TABLET PO ONE (18:00)
[2017-07-09 18:05] LABS: ALBUMIN 3.2 g/dL (3.4-5.0); ANION GAP 5 mmol/L (5-15); CALCIUM 8.4 mg/dL (8.5-10.1); CHLORIDE 106 mmol/L (98-107); CREATININE 0.99 mg/dL (0.7-1.3)
[2017-07-09 19:16] LABS: MICROSCOPIC AUTO
[2017-07-09 19:25] LABS: CULTURE INDICATED? YES
[2017-07-09] MEDS ORDERED: CEFTRIAXONE PMX 1GM/50ML 50 ML IV ONE (20:30)
[2017-07-09] MEDS ORDERED: CEFTRIAXONE PMX 1GM/50ML 50 ML ONE (20:40)
[2017-07-09] MEDS ORDERED: ACETAMINOPHEN 325 MG TABLET PO PRN (21:30)
[2017-07-09] MEDS ORDERED: hydrALAzine 20 MG/ML, 1ML IVPush PRN (21:30)
[2017-07-09] MEDS ORDERED: CEFTRIAXONE PMX 1GM/50ML 50 ML IV SCH (21:30)
[2017-07-09] MEDS ORDERED: ONDANSETRON 2MG/ML, 2ML IVPush PRN (21:30)
[2017-07-09] MEDS: ROPINIROLE 0.25MG TABLET PO SCH (21:30)
[2017-07-09 22:28] VITALS: BP 148/105
[2017-07-09 22:30] VITALS: BP 148/105
[2017-07-09] MEDS: SODIUM CHLORIDE 0.9% 1,000 ML IV SCH (23:32)
[2017-07-10 03:01] VITALS: BP 147/92
[2017-07-10] MEDS: ASPIRIN 81 MG TABLET EC PO SCH (06:00)
[2017-07-10 07:51] VITALS: BP 129/81
[2017-07-10] MEDS: ROPINIROLE 0.25MG TABLET PO SCH ×4 (09:00→20:15)
[2017-07-10] MEDS: POLYETHYLENE GLYCOL 17 GM PACKET PO SCH (09:00)
[2017-07-10] MEDS: APIXABAN 5 MG TABLET PO SCH ×3 (09:00→20:15)
[2017-07-10] MEDS: SODIUM CHLORIDE 0.9% 1,000 ML IV SCH ×2 (09:06→18:00)
[2017-07-10] MEDS ORDERED: ERGOCALCIFEROL 50,000 UNIT CAPSULE PO SCH (13:00)
[2017-07-10 13:20] VITALS: BP 124/76
[2017-07-10] MEDS: METOPROLOL TARTRATE 25 MG TABLET PO SCH (18:00)
[2017-07-10] MEDS: CARBIDOPA/LEVODOPA CR 25 MG/100 MG TABLET PO SCH ×2 (18:00→20:15)
[2017-07-10 19:20] VITALS: BP 108/74
[2017-07-10] MEDS: CEFTRIAXONE PMX 1GM/50ML 50 ML IV SCH (20:15)
[2017-07-11 02:53] VITALS: BP 112/71
[2017-07-11] MEDS: SODIUM CHLORIDE 0.9% 1,000 ML IV SCH ×2 (04:14→17:50)
[2017-07-11] MEDS ORDERED: CARBIDOPA/LEVODOPA 25 MG/100 MG TABLET PO SCH (04:30)
[2017-07-11] MEDS: METOPROLOL TARTRATE 25 MG TABLET PO SCH ×2 (05:42→18:00)
[2017-07-11] MEDS: ASPIRIN 81 MG TABLET EC PO SCH (05:42)
[2017-07-11] MEDS: CARBIDOPA/LEVODOPA CR 25 MG/100 MG TABLET PO SCH ×2 (06:00→10:51)
[2017-07-11 06:47] VITALS: BP 119/77
[2017-07-11] MEDS: APIXABAN 5 MG TABLET PO SCH ×2 (08:06→20:33)
[2017-07-11] MEDS: ROPINIROLE 0.25MG TABLET PO SCH ×3 (08:06→20:33)
[2017-07-11] MEDS: POLYETHYLENE GLYCOL 17 GM PACKET PO SCH (10:53)
[2017-07-11 12:57] VITALS: BP 105/67
[2017-07-11] MEDS ORDERED: CARBIDOPA/LEVODOPA 25 MG/100 MG TABLET PO ONE (14:00)
[2017-07-11] MEDS: CARBIDOPA/LEVODOPA 25 MG/100 MG TABLET PO SCH ×3 (14:00→21:00)
[2017-07-11] MEDS: CARBIDOPA/LEVODOPA 25 MG/250 MG TABLET PO SCH ×2 (16:02→20:32)
[2017-07-11] MEDS: CEFTRIAXONE PMX 1GM/50ML 50 ML IV SCH (20:34)
[2017-07-11 21:48] VITALS: BP 98/56
[2017-07-12] MEDS: CARBIDOPA/LEVODOPA 25 MG/100 MG TABLET PO SCH ×3 (01:41→12:43)
[2017-07-12 02:25] VITALS: BP_SYST 121; BP_SYST 130; BP_DIAS 71; BP_DIAS 74
[2017-07-12] MEDS: METOPROLOL TARTRATE 25 MG TABLET PO SCH (04:54)
[2017-07-12] MEDS: SODIUM CHLORIDE 0.9% 1,000 ML IV SCH (04:54)
[2017-07-12] MEDS: ASPIRIN 81 MG TABLET EC PO SCH (04:55)
[2017-07-12 06:50] VITALS: BP 127/80
[2017-07-12] MEDS: POLYETHYLENE GLYCOL 17 GM PACKET PO SCH (07:48)
[2017-07-12] MEDS: ROPINIROLE 0.25MG TABLET PO SCH ×2 (09:13→16:00)
[2017-07-12] MEDS: CARBIDOPA/LEVODOPA 25 MG/250 MG TABLET PO SCH ×2 (09:13→15:09)
[2017-07-12] MEDS: APIXABAN 5 MG TABLET PO SCH (09:13)
[2017-07-12] MEDS ORDERED: CARB1TAB22 PO (09:16)
[2017-07-12] MEDS ORDERED: CARB1TAB25 PO (09:16)
[2017-07-12 14:00] VITALS: BP 114/72
== END 2017-07-12 17:00 | DRG 689 ==
LOC: ED 20:07 → EDIP 20:23 → 4NOR 21:50
PROVIDERS: ADMIT Hospitalist; ATTEND Hospitalist
DX: N30.00 Acute cystitis without hematuria (principal); E43 Unspecified severe protein-calorie malnutrition; J96.10 Chronic respiratory failure, unspecified whether with hypoxia or hypercapnia; G20 Parkinson's disease; J44.9 Chronic obstructive pulmonary disease, unspecified; M41.9 Scoliosis, unspecified; W01.0XXA Fall on same level from slipping, tripping and stumbling without subsequent striking against object, initial encounter; E55.9 Vitamin D deficiency, unspecified; M47.9 Spondylosis, unspecified; B96.20 Unspecified Escherichia coli [E. coli] as the cause of diseases classified elsewhere; M17.10 Unilateral primary osteoarthritis, unspecified knee; S80.01XA Contusion of right knee, initial encounter; Z79.01 Long term (current) use of anticoagulants; Z86.711 Personal history of pulmonary embolism; Z87.440 Personal history of urinary (tract) infections; Y93.89 Activity, other specified; Y92.048 Other place in boarding-house as the place of occurrence of the external cause; Y99.8 Other external cause status; Z68.25 Body mass index [BMI] 25.0-25.9, adult
CPT/HCPCS: 36415; 70450; 80048; 81001; 82040; 85025; 87077; 87086; 87186; 93005; 99285; J0696; J7030

== ENCOUNTER 2017-08-19 19:41 | Inpatient (IN) | payer MEDICARE ==
[~2017-08-19] VITALS: Ht 185.4 cm; Wt 82.0 kg
[~2017-08-19 19:41] MED LIST changes: +CARB1TAB22 PO; +CHOL100015 PO
[2017-08-19] MEDS ORDERED: SODIUM CHLORIDE 0.9% 1,000ML IVBOLUS ONE (20:30)
[2017-08-19] MEDS ORDERED: SODIUM CHLORIDE FLUSH 10ML SYR IVF ONE (20:30)
[2017-08-19 20:59] LABS: BASOPHILS # (AUTO) 0.02 x10^3/uL (0-0.1); BASOPHILS % (AUTO) 0 % (0-1); EOSINOPHILS # (AUTO) 0.38 x10^3/uL (0-0.4); EOSINOPHILS % (AUTO) 8 % (1-7); LYMPHOCYTES # (AUTO) 0.77 x10^3/uL (1-3.4); LYMPHOCYTES % (AUTO) 16 % (22-44); MD NO; MEAN CORPUSCULAR HEMOGLOBIN 30.5 pg (27.5-34.5); MEAN CORPUSCULAR HGB CONC 33.3 g/dL (33.2-36.2); MEAN CORPUSCULAR VOLUME 91.6 fL (81-97); MONOCYTES # (AUTO) 0.61 x10^3/uL (0.2-0.8); MONOCYTES % (AUTO) 13 % (2-9); NEUTROPHILS # (AUTO) 3.13 x10^3/uL (1.8-6.8); NEUTROPHILS % (AUTO) 64 % (42-75); PLATELET COUNT 308 x10^3/uL (130-400); RED BLOOD COUNT 4.56 x10^6/uL (4.38-5.82); RED CELL DISTRIBUTION WIDTH 14.7 % (9.4-14.8)
[2017-08-19 21:08] LABS: INTERNATIONAL NORMALIZED RATIO 1.08 (0.93-1.1); PROTHROMBIN TIME 11.2 Seconds (9.6-11.5)
[2017-08-19 21:12] LABS: ALBUMIN 3.2 g/dL (3.4-5.0); ANION GAP 5 mmol/L (5-15); CALCIUM 8.8 mg/dL (8.5-10.1); CHLORIDE 109 mmol/L (98-107); CREATININE 0.91 mg/dL (0.7-1.3)
[2017-08-19 21:14] LABS: MICROSCOPIC AUTO
[2017-08-19 21:14] LABS: ALANINE AMINOTRANSFERASE < 6 U/L (12-78)
[2017-08-19 21:16] LABS: ALKALINE PHOSPHATASE 75 U/L (45-117); BILIRUBIN,TOTAL 0.5 mg/dL (0.2-1.0); TOTAL PROTEIN 6.8 g/dL (6.4-8.2); TROPONIN I < 0.015 ng/mL (0.000-0.045)
[2017-08-19 21:17] LABS: CULTURE INDICATED? YES
[2017-08-19] MEDS ORDERED: ENOXAPARIN 80 MG/0.8 ML SQ ONE (22:00)
[2017-08-19] MEDS ORDERED: PIPERACILLIN/TAZO/PMX 3.375GM 50 ML IV ONE (22:00)
[2017-08-19] MEDS ORDERED: POLYETHYLENE GLYCOL 17 GM PACKET PO PRN (22:30)
[2017-08-19] MEDS ORDERED: ACETAMINOPHEN 325 MG TABLET PO PRN (22:30)
[2017-08-19] MEDS ORDERED: hydrALAzine 20 MG/ML, 1ML IVPush PRN (22:30)
[2017-08-19] MEDS ORDERED: ONDANSETRON 2MG/ML, 2ML IVPush PRN (22:30)
[2017-08-19] MEDS ORDERED: DOCUSATE 100 MG CAPSULE PO PRN (22:30)
[2017-08-19] MEDS ORDERED: ENOXAPARIN 80 MG/0.8 ML ONE (23:11)
[2017-08-19] MEDS ORDERED: PIPERACILLIN/TAZO/PMX 3.375GM 50 ML ONE (23:11)
[2017-08-19] MEDS: SODIUM CHLORIDE 0.9% 1,000 ML IV SCH (23:19)
[2017-08-20 00:31] VITALS: BP 175/77
[2017-08-20] MEDS ORDERED: CEFTRIAXONE PMX 1GM/50ML 50 ML IV SCH (01:00)
[2017-08-20 05:03] LABS: CHLORIDE 112 mmol/L (98-107)
[2017-08-20 05:06] LABS: BASOPHILS # (AUTO) 0.03 x10^3/uL (0-0.1); BASOPHILS % (AUTO) 0 % (0-1); EOSINOPHILS # (AUTO) 0.47 x10^3/uL (0-0.4); EOSINOPHILS % (AUTO) 7 % (1-7); LYMPHOCYTES # (AUTO) 0.74 x10^3/uL (1-3.4); LYMPHOCYTES % (AUTO) 12 % (22-44); MD NO; MEAN CORPUSCULAR HEMOGLOBIN 30.1 pg (27.5-34.5); MEAN CORPUSCULAR HGB CONC 32.6 g/dL (33.2-36.2); MEAN CORPUSCULAR VOLUME 92.1 fL (81-97); MONOCYTES # (AUTO) 0.58 x10^3/uL (0.2-0.8); MONOCYTES % (AUTO) 9 % (2-9); NEUTROPHILS # (AUTO) 4.53 x10^3/uL (1.8-6.8); NEUTROPHILS % (AUTO) 71 % (42-75); PLATELET COUNT 297 x10^3/uL (130-400); RED CELL DISTRIBUTION WIDTH 14.8 % (9.4-14.8)
[2017-08-20 05:13] LABS: ALKALINE PHOSPHATASE 69 U/L (45-117); ANION GAP 6 mmol/L (5-15); CALCIUM 8.6 mg/dL (8.5-10.1); CREATININE 0.89 mg/dL (0.7-1.3); TOTAL PROTEIN 6.2 g/dL (6.4-8.2)
[2017-08-20 05:18] LABS: ALANINE AMINOTRANSFERASE < 6 U/L (12-78)
[2017-08-20] MEDS: ASPIRIN 81 MG TABLET EC PO SCH (07:24)
[2017-08-20] MEDS: METOPROLOL TARTRATE 25 MG TABLET PO SCH ×2 (07:24→16:55)
[2017-08-20] MEDS: CARBIDOPA/LEVODOPA 25 MG/100 MG TABLET PO SCH ×2 (07:35→11:24)
[2017-08-20] MEDS: APIXABAN 5 MG TABLET PO SCH ×2 (07:59→20:48)
[2017-08-20] MEDS: ROPINIROLE 0.25MG TABLET PO SCH ×3 (07:59→20:38)
[2017-08-20 08:55] VITALS: BP 127/69
[2017-08-20] MEDS: CARBIDOPA/LEVODOPA 25 MG/250 MG TABLET PO SCH ×3 (09:43→20:40)
[2017-08-20 12:52] VITALS: BP 160/73
[2017-08-20] MEDS ORDERED: CARBIDOPA/LEVODOPA 25 MG/250 MG TABLET PO PRN (13:30)
[2017-08-20] MEDS: CARBIDOPA/LEVODOPA CR 25 MG/100 MG TABLET PO SCH ×3 (14:13→20:48)
[2017-08-20] MEDS: SODIUM CHLORIDE 0.9% 1,000 ML IV SCH (14:13)
[2017-08-20] MEDS ORDERED: ROPINIROLE 0.5MG TABLET ONE ×2 (16:35→19:44)
[2017-08-20 19:28] VITALS: BP 92/57
[2017-08-21] MEDS: CARBIDOPA/LEVODOPA 25 MG/250 MG TABLET PO PRN ×7 (00:04→17:25)
[2017-08-21] MEDS: CEFTRIAXONE 1,000 MG in DEXTROSE 5% 50 ML IV SCH (01:53)
[2017-08-21 02:00] VITALS: BP 114/75
[2017-08-21] MEDS: SODIUM CHLORIDE 0.9% 1,000 ML IV SCH ×2 (02:12→16:20)
[2017-08-21 05:16] LABS: ANION GAP 5 mmol/L (5-15); CALCIUM 8.6 mg/dL (8.5-10.1); CHLORIDE 110 mmol/L (98-107); CREATININE 0.89 mg/dL (0.7-1.3)
[2017-08-21] MEDS: CARBIDOPA/LEVODOPA CR 25 MG/100 MG TABLET PO SCH ×5 (06:21→20:15)
[2017-08-21] MEDS: ASPIRIN 81 MG TABLET EC PO SCH (06:21)
[2017-08-21 06:22] VITALS: BP 100/72
[2017-08-21] MEDS: METOPROLOL TARTRATE 25 MG TABLET PO SCH ×2 (06:23→18:00)
[2017-08-21] MEDS: ROPINIROLE 0.25MG TABLET PO SCH ×3 (09:28→20:14)
[2017-08-21] MEDS: APIXABAN 5 MG TABLET PO SCH ×2 (09:28→20:14)
[2017-08-21] MEDS: CARBIDOPA/LEVODOPA 25 MG/250 MG TABLET PO SCH ×3 (09:28→20:15)
[2017-08-21 10:30] VITALS: BP 107/66
[2017-08-21 15:07] VITALS: BP 125/70
[2017-08-21 19:16] VITALS: BP 106/66
[2017-08-22] VITALS: BP 131/79
[2017-08-22] MEDS: CARBIDOPA/LEVODOPA 25 MG/250 MG TABLET PO PRN ×7 (00:27→23:21)
[2017-08-22] MEDS: CEFTRIAXONE 1,000 MG in DEXTROSE 5% 50 ML IV SCH (01:43)
[2017-08-22] MEDS: SODIUM CHLORIDE 0.9% 1,000 ML IV SCH (04:37)
[2017-08-22 06:44] VITALS: BP 135/80
[2017-08-22] MEDS: ASPIRIN 81 MG TABLET EC PO SCH (06:45)
[2017-08-22] MEDS: METOPROLOL TARTRATE 25 MG TABLET PO SCH ×2 (06:45→17:59)
[2017-08-22] MEDS: CARBIDOPA/LEVODOPA CR 25 MG/100 MG TABLET PO SCH ×5 (06:46→21:00)
[2017-08-22 07:04] VITALS: BP 121/64
[2017-08-22] MEDS: ROPINIROLE 0.25MG TABLET PO SCH ×3 (08:15→21:06)
[2017-08-22] MEDS: APIXABAN 5 MG TABLET PO SCH ×2 (08:15→21:06)
[2017-08-22] MEDS: CARBIDOPA/LEVODOPA 25 MG/250 MG TABLET PO SCH ×3 (08:18→21:06)
[2017-08-22 13:44] VITALS: BP 123/72
[2017-08-22 19:58] VITALS: BP 130/69
[2017-08-22] MEDS: CEFDINIR 300 MG CAPSULE PO SCH (21:06)
[2017-08-23] MEDS: CARBIDOPA/LEVODOPA 25 MG/250 MG TABLET PO PRN ×2 (01:22→03:37)
[2017-08-23 01:54] VITALS: BP 110/75
[2017-08-23] MEDS: METOPROLOL TARTRATE 25 MG TABLET PO SCH (05:53)
[2017-08-23] MEDS: CARBIDOPA/LEVODOPA CR 25 MG/100 MG TABLET PO SCH ×2 (05:54→08:33)
[2017-08-23] MEDS: ASPIRIN 81 MG TABLET EC PO SCH (05:54)
[2017-08-23 07:40] VITALS: BP 151/94
[2017-08-23] MEDS ORDERED: CEFD300C37 PO (08:02)
[2017-08-23] MEDS: CEFDINIR 300 MG CAPSULE PO SCH (08:33)
[2017-08-23] MEDS: ROPINIROLE 0.25MG TABLET PO SCH (08:33)
[2017-08-23] MEDS: CARBIDOPA/LEVODOPA 25 MG/250 MG TABLET PO SCH (08:33)
[2017-08-23] MEDS: APIXABAN 5 MG TABLET PO SCH (08:33)
[2017-08-23] MEDS ORDERED: CARB1TAB22 PO (09:15)
[2017-08-23] MEDS ORDERED: SIMV10TA PO (09:16)
[2017-08-23 10:13] VITALS: BP 148/81
== END 2017-08-23 10:40 | disposition home or self-care (01) | DRG 57 ==
LOC: ED 20:12 → EDIP 22:11 → 4NOR 08-20 00:07 → DCLOUNGE 08-23 10:20
PROVIDERS: ADMIT Hospitalist; ATTEND Hospitalist
DX: G20 Parkinson's disease (principal); E86.0 Dehydration; N30.01 Acute cystitis with hematuria; D63.8 Anemia in other chronic diseases classified elsewhere; M41.9 Scoliosis, unspecified; E44.1 Mild protein-calorie malnutrition; B96.20 Unspecified Escherichia coli [E. coli] as the cause of diseases classified elsewhere; E55.9 Vitamin D deficiency, unspecified; I10 Essential (primary) hypertension; Z79.01 Long term (current) use of anticoagulants; Z79.82 Long term (current) use of aspirin; Z86.711 Personal history of pulmonary embolism; Z87.440 Personal history of urinary (tract) infections; Z68.23 Body mass index [BMI] 23.0-23.9, adult
CPT/HCPCS: 36415; 71045; 80048; 80053; 81001; 83605; 83735; 84100; 84145; 84484; 85025; 85610; 85730; 87040; 87077; 87086; 87186; 93005; 96360; 96361; 96372; J0696; J1650; J2543; J7030

== ENCOUNTER 2017-09-08 13:22 | Emergency (ER) | payer MEDICARE ==
[~2017-09-08] VITALS: Ht 170.2 cm; Wt 70.0 kg
[~2017-09-08 13:22] MED LIST changes: +SIMV10TA PO
[2017-09-08 14:22] LABS: BASOPHILS # (AUTO) 0.01 x10^3/uL (0-0.1); BASOPHILS % (AUTO) 0 % (0-1); EOSINOPHILS % (AUTO) 0 % (1-7); LYMPHOCYTES # (AUTO) 0.35 x10^3/uL (1-3.4); LYMPHOCYTES % (AUTO) 3 % (22-44); MD NO; MEAN CORPUSCULAR HGB CONC 32.8 g/dL (33.2-36.2); MEAN CORPUSCULAR VOLUME 91.3 fL (81-97); MONOCYTES # (AUTO) 1.06 x10^3/uL (0.2-0.8); MONOCYTES % (AUTO) 9 % (2-9); NEUTROPHILS # (AUTO) 10.99 x10^3/uL (1.8-6.8); NEUTROPHILS % (AUTO) 89 % (42-75); PLATELET COUNT 273 x10^3/uL (130-400); RED BLOOD COUNT 4.53 x10^6/uL (4.38-5.82); RED CELL DISTRIBUTION WIDTH 15.2 % (9.4-14.8)
[2017-09-08 14:33] LABS: ALANINE AMINOTRANSFERASE 6 U/L (12-78); ANION GAP 10 mmol/L (5-15); CALCIUM 8.2 mg/dL (8.5-10.1); CHLORIDE 105 mmol/L (98-107); CREATININE 1.42 mg/dL (0.7-1.3)
[2017-09-08 14:37] LABS: ALKALINE PHOSPHATASE 81 U/L (45-117); TOTAL PROTEIN 6.7 g/dL (6.4-8.2); TROPONIN I < 0.015 ng/mL (0.000-0.045)
[2017-09-08] MEDS ORDERED: SODIUM CHLORIDE 0.9% 1,000ML IVBOLUS ONE (16:00)
[2017-09-08 17:13] VITALS: BP 94/59
== END 2017-09-08 17:15 | disposition short-term general hospital (02) ==
LOC: ED 16:52
DX: R62.7 Adult failure to thrive (principal); E86.0 Dehydration; G20 Parkinson's disease; I26.99 Other pulmonary embolism without acute cor pulmonale
CPT/HCPCS: 36415; 80053; 84484; 85025; 96360; 99285; J7030